=== PATIENT | female | born 1970 | race Caucasian/White ===

== ENCOUNTER 2017-11-04 01:52 | Emergency (ER) | payer SELFPAY ==
[~2017-11-04] VITALS: Ht 149.9 cm; Wt 68.0 kg
[2017-11-04 02:06] VITALS: Ht 149.9 cm; Wt 68.0 kg
[2017-11-04 03:18] LABS: BASOPHIL % 0.9 % (0-2); PLATELET COUNT 274 x10^3mcL (130-400); RED CELL DISTRIBUTION WIDTH 13.9 % (11.5-14.5)
[2017-11-04 03:20] LABS: CALCIUM 9.1 mg/dL (8.5-10.1); CARBON DIOXIDE 24.7 mmol/L (21-32); CHLORIDE SERUM 100 mmol/L (98-107); CREATININE SERUM 0.7 mg/dL (0.6-1.0); GFR1 > 60 mL/min; GLUCOSE SERUM 313 mg/dL (74-106); POTASSIUM SERUM 4.1 mmol/L (3.5-5.1); SODIUM SERUM 138 mmol/L (136-145)
[2017-11-04 03:36] LABS: ALBUMIN 3.5 g/dL (3.4-5.0); ALKALINE PHOSPHATASE 132 U/L (46-116); ALT/SGPT 100 U/L (14-59); AST/SGOT 63 U/L (15-37); BILIRUBIN TOTAL 0.59 mg/dL (0.20-1.00); LIPASE 195 IU/L (73-393); TOTAL PROTEIN, SERUM 7.7 g/dL (6.4-8.2)
[2017-11-04 05:59] VITALS: BP 118/75
== END 2017-11-04 05:59 | disposition home or self-care (01) ==
LOC: ED 01:52
PROVIDERS: Emergency Medicine
DX: R10.11 Right upper quadrant pain (principal); R74.0 Nonspecific elevation of levels of transaminase and lactic acid dehydrogenase [LDH]; E11.65 Type 2 diabetes mellitus with hyperglycemia; I10 Essential (primary) hypertension; Z90.49 Acquired absence of other specified parts of digestive tract
CPT/HCPCS: 82962; J7030

== ENCOUNTER 2017-11-25 11:09 | Emergency (ER) | payer MEDICAID ==
[~2017-11-25] VITALS: Ht 152.4 cm; Wt 67.6 kg
[2017-11-25 11:29] VITALS: Ht 152.4 cm; Wt 67.6 kg
[2017-11-25 14:10] LABS: CALCIUM 8.6 mg/dL (8.5-10.1); CHLORIDE SERUM 100 mmol/L (98-107); CREATININE SERUM 0.6 mg/dL (0.6-1.0); GFR1 > 60 mL/min; GLUCOSE SERUM 290 mg/dL (74-106); POTASSIUM SERUM 3.9 mmol/L (3.5-5.1); SODIUM SERUM 134 mmol/L (136-145)
[2017-11-25 14:15] LABS: ALBUMIN 3.5 g/dL (3.4-5.0); ALKALINE PHOSPHATASE 110 U/L (46-116); ALT/SGPT 78 U/L (14-59); AST/SGOT 61 U/L (15-37); LIPASE 200 IU/L (73-393); TOTAL PROTEIN, SERUM 7.5 g/dL (6.4-8.2)
[2017-11-25 14:19] LABS: BASOPHIL % 0.6 % (0-2); PLATELET COUNT 272 x10^3mcL (130-400); RED CELL DISTRIBUTION WIDTH 14.2 % (11.5-14.5)
[2017-11-25 17:20] VITALS: BP 129/75
== END 2017-11-25 17:20 | disposition home or self-care (01) ==
LOC: ED 11:09
PROVIDERS: Emergency Medicine
DX: R10.11 Right upper quadrant pain (principal); E11.65 Type 2 diabetes mellitus with hyperglycemia; R74.0 Nonspecific elevation of levels of transaminase and lactic acid dehydrogenase [LDH]; I10 Essential (primary) hypertension; R11.0 Nausea
CPT/HCPCS: J1170; J2405; J7030; Q0092